=== PATIENT | male | born 1940 | race African-American/Black ===

== ENCOUNTER 2023-12-19 03:19 | Emergency (ER) | payer OTHER ==
[~2023-12-19] VITALS: Ht 180.3 cm; Wt 73.0 kg
[2023-12-19 03:27] VITALS: O2SAT 99
[2023-12-19] MEDS ORDERED: BISA-81 PO (04:12)
[2023-12-19] MEDS ORDERED: DOCU-138 MT (04:12)
[2023-12-19] MEDS: BISACODYL 5MG TABLET PO ONE (04:45)
[2023-12-19 05:40] VITALS: BP 162/79; PULSE 85; RESP 16; TEMP 98.2
== END 2023-12-19 05:40 | disposition home or self-care (01) ==
LOC: ER 03:19
DX: K59.00 Constipation, unspecified (principal); Z98.890 Other specified postprocedural states
CPT/HCPCS: 99283